=== PATIENT | female | born 1985 | race Caucasian/White ===

== ENCOUNTER 2020-05-14 13:57 | Emergency (ER) | payer OTHER ==
[~2020-05-14] VITALS: Ht 149.9 cm; Wt 70.3 kg
[2020-05-14 14:15] LABS: URINE BILIRUBIN NEGATIVE (Negative); URINE BLOOD TRACE (Negative); URINE CLARITY CLEAR; URINE COLOR YELLOW; URINE GLUCOSE-RANDOM NEGATIVE (Negative); URINE KETONES NEGATIVE (Negative); URINE LEUKOCYTES-REFLEX NEGATIVE (Negative); URINE NITRITE-REFLEX NEGATIVE (Negative); URINE PROTEIN NEGATIVE (Negative); URINE UROBILINOGEN 0.2 E.U./dl (0.2-1.0)
[2020-05-14 14:46] LABS: ABSOLUTE BASOPHILS 0.1 thou/uL (0.0-0.2); ABSOLUTE EOSINOPHILS 0.1 thou/uL (0.0-0.7); ABSOLUTE MONOCYTES 0.6 thou/uL (0.0-1.2); ABSOLUTE NEUTROPHILS 3.6 thou/uL (1.6-8.1); EOSINOPHILS 1.2 %; HEMATOCRIT 36.7 % (37.0-47.0); HEMOGLOBIN 12.8 gm/dL (12.0-15.0); LYMPHOCYTES 32.1 %; MCH 33.5 pg (26.0-34.0); MCHC 34.8 g/dL (28.0-37.0); MCV 96.2 fL (80.0-100.0); NUCLEATED RBCS 0 /100WBC; PLATELET COUNT* 218 thou/uL (150-400); POLYS 56.7 %; RBC 3.82 mil/uL (4.20-5.00); RDW-CV 12.5 % (10.5-14.5); WBC 6.4 thou/uL (4.0-11.0)
[2020-05-14 14:54] LABS: CALCIUM 8.5 mg/dL (8.5-10.1); CREATININE 0.8 mg/dL (0.6-1.3); POTASSIUM 3.8 mmol/L (3.5-5.1)
[2020-05-14 14:59] LABS: ALBUMIN 3.2 g/dL (3.4-5.0); TOTAL BILIRUBIN 0.2 mg/dL (<0.1-1.0); TOTAL PROTEIN 6.8 g/dL (6.4-8.2)
[2020-05-14] MEDS ORDERED: NORCO 5-325 TA1 EAC1 PO (15:58)
[2020-05-14 16:01] VITALS: BP 136/68
== END 2020-05-14 16:01 | disposition home or self-care (01) ==
LOC: M.ERS 13:57
PROVIDERS: Physician Assistant
DX: O20.0 Threatened abortion (principal); Z3A.01 Less than 8 weeks gestation of pregnancy